=== PATIENT | female | born 1965 | race Caucasian/White ===

== ENCOUNTER 2017-05-16 09:17 | Emergency (ER) | payer OTHER ==
--- NOTE | 2017-05-16 09:52 | EDM.PDOC ---
ED HPI GENERAL MEDICAL PROBLEM - General Chief Complaint: Lower Extremity Injury/Pain Stated Complaint: RIGHT LEG PAIN Time Seen by Provider: 05/16/17 09:21 Source of Information: Reports: Patient History Limitations: Reports: No Limitations - History of Present Illness INITIAL COMMENTS - FREE TEXT/NARRATIVE: History of present illness: []Patient has had right knee pain for approximately 6 months and has started to feel pain behind the knee and now has a burning feeling down into her calf. Patient denies any redness, fevers, swelling, trauma or any numbness or tingling. Review of systems: As per history of present illness and below otherwise all systems reviewed and negative. Past medical history: As per history of present illness and as reviewed below otherwise noncontributory. Surgical history: As per history of present illness and as reviewed below otherwise noncontributory. Social history: No reported history of drug or alcohol abuse. Family history: As per history of present illness and as reviewed below otherwise noncontributory. Physical exam: General: Well developed, well nourished in NAD HEENT: Atraumatic, normocephalic, pupils reactive, negative for conjunctival pallor or scleral icterus, mucous membranes moist, throat clear, neck supple, nontender, trachea midline. Lungs: Clear to auscultation, breath sounds equal bilaterally, chest nontender. Heart: S1S2, regular, negative for clicks, rubs, or JVD. Abdomen: Soft, nondistended, nontender. Negative for masses or hepatosplenomegaly. Negative for costovertebral tenderness. Pelvis: Stable nontender. Genitourinary: Deferred. Rectal: Deferred. Extremities: Atraumatic, right lower extremity tender to palpation posterior knee no swelling, erythema, masses, negative for cords or calf pain. Neurovascular unremarkable. Neuro: Awake, alert, oriented. Cranial nerves II through XII unremarkable. Cerebellum unremarkable. Motor and sensory unremarkable throughout. Exam nonfocal. Diagnostics: []Ultrasound negative for DVT or cyst Therapeutics: []Patient declined pain meds Impression: []Right knee pain Plan: []Diclofenac, ice, follow up with primary care Definitive disposition and diagnosis as appropriate pending reevaluation and review of above. Right Knee Pain Score (Numeric/FACES): 9 - Related Data Allergies Allergy/AdvReac Type Severity Reaction Status Date / Time No Known Allergies Allergy Verified 05/16/17 09:26 Home Meds: Home Meds Diclofenac Sodium [IJD: Diclofenac Sodium] 75 mg PO .TWICE DAILY W MEALS PRN # 20 tab.ec 05/16/17 [Rx] Past Medical History - Past Health History Medical/Surgical History: Denies Medical/Surgical History Hematologic History: Reports: Other (See Below) Other Hematologic History: Factor V Leiden - Past Surgical History Female Surgical History: Reports: Breast Reduction, Section Neurological Surgical History: Reports: Other (See Below) Social & Family History - Family History Family Medical History: Noncontributory - Tobacco Use Smoking Status *Q: Never Smoker Second Hand Smoke Exposure: No - Caffeine Use Caffeine Use: Reports: Other - Recreational Drug Use Recreational Drug Use: No Review of Systems - Review of Systems Review Of Systems: See Below (See history of present illness) ED EXAM, GENERAL - Physical Exam Exam: See Below (See history of present illness) Course - Vital Signs Last Recorded V/S: Last Vital Signs Temp 99.1 F 05/16/17 09:42 Pulse 76 05/16/17 10:28 Resp 18 05/16/17 10:28 BP 136/85 05/16/17 10:28 Pulse Ox 96 05/16/17 10:28 Departure - Departure Time of Disposition: 11:36 Disposition: Home, Self-Care 01 Condition: Good Clinical Impression: Right knee pain Qualifiers: Chronicity: chronic Qualified Code(s): M25.561 - Pain in right knee; G89.29 - Other chronic pain; G89.29 - Other chronic pain - Discharge Information Prescriptions: Diclofenac Sodium [IJD: Diclofenac Sodium] 75 mg PO .TWICE DAILY W MEALS PRN # 20 tab.ec PRN Reason: Pain Referrals: PCP,None [Primary Care Provider] - Forms: ED Department Discharge Additional Instructions: The following information is given to patients seen in the emergency department who are being discharged to home. This information is to outline your options for follow-up care. We provide all patients seen in our emergency department with a follow-up referral. The need for follow-up, as well as the timing and circumstances, are variable depending upon the specifics of your emergency department visit. If you don't have a primary care physician on staff, we will provide you with a referral. We always advise you to contact your personal physician following an emergency department visit to inform them of the circumstance of the visit and for follow-up with them and/or the need for any referrals to a consulting specialist. The emergency department will also refer you to a specialist when appropriate. This referral assures that you have the opportunity for follow-up care with a specialist. All of these measure are taken in an effort to provide you with optimal care, which includes your follow-up. Under all circumstances we always encourage you to contact your private physician who remains a resource for coordinating your care. When calling for follow-up care, please make the office aware that this follow-up is from your recent emergency room visit. If for any reason you are refused follow-up, please contact the [facility] Emergency Department at and asked to speak to the emergency department charge nurse. Diclofenac and ice for pain follow-up with primary care return of symptoms worsen or change.[facility] Primary [facility] [address] [place] [id number]
--- NOTE | 2017-05-16 10:20 | US ---
ULTRASOUND EXAMINATION OF the right lower extremity WITH DOPPLER HISTORY: Pain FINDINGS: Examination of the right leg was performed from the groin to the calf region. All visualized segment s including common femoral, proximal greater saphenous, superficial femoral, popliteal and calf veins appear patent with good compressibility and augmentation. There is no evidence of deep vein thrombo sis. IMPRESSION: No evidence of a DVT.
--- NOTE | 2017-05-16 11:30 | CR ---
EXAMINATION: Right knee HISTORY: Pain COMPARISON: None TECHNIQUE: 3 views FINDINGS/IMPRESSION: There is no acute osseous abnormality, dislocation, or fracture. Joint spaces an d bone mineralization appear normal. No joint effusion or soft tissue swelling.
[2017-05-16 11:49] VITALS: BP 135/77
== END 2017-05-16 11:45 | disposition home or self-care (01) ==
LOC: MW.ED 09:17
DX: M25.561 Pain in right knee (principal); G89.29 Other chronic pain
CPT/HCPCS: 73562-26-RT; 73562-RT; 93971-26-RT; 93971-RT; 99284; 99284-25